=== PATIENT | female | born 2000 ===

== ENCOUNTER 2023-12-24 12:06 | Outpatient (CLI) | payer OTHER, SELFPAY | END 2023-12-24 12:07 | disposition home or self-care (01) | LOC: AMB 01-08 07:26 | PROVIDERS: Visit Provider Emergency Medicine Emergency Medical Services | DX: S09.90XA Unspecified injury of head, initial encounter (principal); V43.53XA Car driver injured in collision with pick-up truck in traffic accident, initial encounter; Y92.410 Unspecified street and highway as the place of occurrence of the external cause | CPT/HCPCS: A0998 ==